=== PATIENT | female | born 1955 | race Caucasian/White ===

== ENCOUNTER → 2016-10-19 | Outpatient (CLI) | payer MEDICARE, MEDICAID ==
[~2016-10-19] MED LIST: AMITIZA24 MCG PO; ANTACID LIQUID355 ML PO; ANTACID200 MG PO; BUSPIRONE HCL15 MG PO; CALCIUM CITRAT1 EA14 PO; CARAFATE1 GM PO; CITRACAL+D(315M1 TAB PO; DEPAKOTE EXTEN250 MG PO; DESYREL100 MG PO; DEXILANT60 MG PO; DOC-Q-LACE100 MG PO; DURAGESIC 75MC75 MCG TOP; FEOSOL325 MG PO; FLUOCINOLON118.28 ML TOP; GUAIFENESIN200 MG PO; INDOCIN25 MG PO; K-TAB 10MEQ10 MEQ PO; LACRI-LUBE) (D1 TUBE OPHTH; LEXAPRO20 MG PO; LOTENSIN20 MG PO; MILK OF MA400 MG/5 M PO; MIRALAX17 GM PO; NICODERM (HABIT14 MG TRANS; OYSTER SHELL 51 EACH PO; PERCOCET 5-3251 EACH PO; PHENERGAN WITH15 ML PO; PROPRANOLOL HCL80 M1 PO; RESTASIS 0.05%1 VIAL OPHTH; TESSALON PERLE100 MG PO; THERA-VITE W/ B1 TAB PO; TRINTELLIX 10 PO; TYLENOL EXTRA500 MG PO; VESICARE10 MG PO; VICKS VAPORUB O50 GM TOP; VITAMIN B-121000 MCG PO; WELLBUTRIN XL150 MG PO; ZANAFLEX4 MG PO; ZOFRAN ODT4 MG PO; ZONISAMIDE100 MG PO; ZYRTEC10 MG PO
[2016-10-19 10:29] LABS: CREATININE 0.6 mg/dL (0.5-1.1)
[2016-10-19 10:31] LABS: ESTIMATED GFR (MDRD EQUATION) > 60
== END | disposition disaster alternative care site (69) ==
LOC: GRAD 09:46 → GLAB 10:00 → GRAD 10:00
PROVIDERS: Family Medicine
DX: R51 Headache (principal); G93.89 Other specified disorders of brain

== ENCOUNTER 2017-02-03 18:46 | Emergency (ER) | payer MEDICARE, MEDICAID ==
--- NOTE | ~2017-02-03 | ER ---
PATIENT'S NAME: DARSHAN TIDWELL [facility] AGE: 61 Y [address] ROOM: [place] [address] LOCATION: [facility] ADMIT DATE: 02/03/2017 ER/Outpatient Report DISCHARGE DATE: 02/03/2017 FAMILY PHYSICIAN: Castro Schmitt MD ATTENDING PHYSICIAN: Wilder Deutsch Admission date and time documented on the medical record. I saw the patient at 1900 hours. CHIEF COMPLAINT: Abdominal pain radiating around to back. No bowel movement for 8 days. HISTORY OF PRESENT ILLNESS: This patient is a 61-year-old female, who lives at [facility]. She has had increasing abdominal pain to the point that she cannot lay down. She has not had a bowel movement for 8 days. She feels like she is constipated and obstipated. No nausea or vomiting. No urinary frequency, urgency, or dysuria. No chest pain or shortness of breath. No lightheadedness, dizziness, syncope, or near syncope. No fall or trauma. No recent colds, coughs, flus, fever, chills, or sweats. No headache, eyes, ears, nose, throat, neck, or spine pain. No joint or muscle problems. No skin eruptions or rash. Does have a history of a seizure disorder, benign brain tumor. Does have anxiety, depression, essential tremor. No endocrine problems. HOME MEDICATIONS: See attached medication list. ALLERGIES: DEMEROL, DHE, MORPHINE SULFATE, STADOL. SOCIAL HISTORY: The patient smokes 1 to 1-1/2 packs cigarettes a day. Nondrinker. PAST MEDICAL HISTORY: Atherosclerotic ischemic heart disease, coronary artery disease, tobacco abuse, remote alcohol abuse, headaches, benign brain tumor, seizure disorder, MRSA positive, Crohn's ileitis, peptic ulcer disease, hypertension, pancreatic exocrine deficiency, nephrolithiasis, GI bleed, depression, anxiety, essential tremor, and gastroesophageal reflux. PAST SURGICAL HISTORY: Right shoulder surgery, lithotripsy, cystoscopy, cholecystectomy, cardiac catheterization, colonoscopy, esophagogastroduodenoscopy, Billroth II gastrectomy, tonsillectomy, adenoidectomy, hysterectomy, open reduction and internal fixation of right humeral fracture. PATIENT'S NAME: DARSHAN TIDWELL [facility] AGE: 61 Y [address] ROOM: [place], [place] [address] LOCATION: [facility] ADMIT DATE: 02/03/2017 ER/Outpatient Report DISCHARGE DATE: 02/03/2017 FAMILY PHYSICIAN: Castro Schmitt MD ATTENDING PHYSICIAN: Wilder Deutsch REVIEW OF SYSTEMS: All systems reviewed by me are negative with the exception of those discussed in the history of present illness. PHYSICAL EXAMINATION: VITAL SIGNS: Temperature 97.8 tympanic, pulse 62, respirations 16, blood pressure 183/84, and O2 saturation on room air is 96%. HEENT: Negative. Mucous membranes moist. NECK: No nuchal rigidity. No findings of adenopathy. No tenderness. SPINE: Negative. LUNGS: Clear. HEART: Regular. No chest wall or ribcage pain to palpation. ABDOMEN: Diffuse tenderness. No distention. Active bowel tones. No CVA tenderness. EXTREMITIES: Without peripheral edema, cyanosis, or deformity. Neurovascularly intact. SKIN: Clear. No skin eruptions or rash. IMAGING DATA: KUB shows increased stool pattern. No obstruction. Air in the rectum. IMPRESSION: Abdominal pain with constipation and obstipation. PLAN: The patient was given fentanyl 50 mcg IV in the emergency room. Dulcolax tablets x2 orally in the emergency department. Dismissed back to [address]. Observation. Continue present home medications and care. Activity as tolerated. The patient is to take one bottle of magnesium citrate orally when she gets home. Follow up with personal physician as needed. Discussion ensued with the patient concerning my findings and recommendations, she understands. WILDER DEUTSCH MD SDS/modl /[id number] d: 02/03/17 2359 t: 02/05/171809, OUTPATIENT REPORT
== END 2017-02-03 19:58 | disposition disaster alternative care site (69) ==
LOC: GMED 18:46
DX: K59.00 Constipation, unspecified (principal); I25.10 Atherosclerotic heart disease of native coronary artery without angina pectoris; G40.909 Epilepsy, unspecified, not intractable, without status epilepticus; F32.9 Major depressive disorder, single episode, unspecified; F41.9 Anxiety disorder, unspecified; K21.9 Gastro-esophageal reflux disease without esophagitis; Z86.011 Personal history of benign neoplasm of the brain; F17.210 Nicotine dependence, cigarettes, uncomplicated; Z88.5 Allergy status to narcotic agent; Z91.048 Other nonmedicinal substance allergy status; Z88.8 Allergy status to other drugs, medicaments and biological substances; Z90.49 Acquired absence of other specified parts of digestive tract; Z98.890 Other specified postprocedural states; Z90.710 Acquired absence of both cervix and uterus; Z90.89 Acquired absence of other organs; Z79.899 Other long term (current) drug therapy
CPT/HCPCS: J3010

== ENCOUNTER → 2017-02-03 | Outpatient (CLI) | payer MEDICARE, MEDICAID | END | disposition disaster alternative care site (69) | LOC: GAMB 18:25 | DX: R10.84 Generalized abdominal pain (principal); K59.00 Constipation, unspecified; M54.5 Low back pain; R10.13 Epigastric pain; R11.0 Nausea; Z79.899 Other long term (current) drug therapy; Z79.891 Long term (current) use of opiate analgesic; Z88.5 Allergy status to narcotic agent | CPT/HCPCS: A0425; A0427; J2405 ==

== ENCOUNTER → 2017-02-03 | Outpatient (CLI) | payer MEDICARE, MEDICAID | END | disposition disaster alternative care site (69) | LOC: GAMB 19:59 | DX: K56.60 Unspecified intestinal obstruction (principal); R10.84 Generalized abdominal pain | CPT/HCPCS: A0425; A0428 ==